=== PATIENT | male | born 2000 | race Caucasian/White ===

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

== ENCOUNTER 2021-07-03 10:28 | Emergency (ER) | payer MEDICAID ==
[~2021-07-03] VITALS: Ht 213.3 cm; Wt 145.1 kg
[~2021-07-03 10:28] MED LIST changes: +DICYCLOMINE HCL10 MG PO
[2021-07-03] MEDS ORDERED: SEPTDS PO (14:02)
[2021-07-03] MEDS ORDERED: NAPROXEN250 MG PO (14:02)
[2021-07-03] MEDS ORDERED: TYLENOL325 M1 PO (14:02)
== END 2021-07-03 14:27 | disposition home or self-care (01) ==
LOC: ED 10:28
DX: L05.01 Pilonidal cyst with abscess (principal)

== ENCOUNTER 2021-07-06 16:07 | Emergency (ER) | payer MEDICAID ==
[~2021-07-06 16:07] MED LIST changes: +NAPROXEN250 MG PO; +SEPTDS PO; +TYLENOL325 M1 PO
== END 2021-07-06 22:05 | disposition left against medical advice (07) ==
LOC: ED 16:07
DX: L02.91 Cutaneous abscess, unspecified (principal); Z53.21 Procedure and treatment not carried out due to patient leaving prior to being seen by health care provider

== ENCOUNTER 2022-06-19 14:44 | Emergency (ER) | payer MEDICAID ==
[~2022-06-19] VITALS: Wt 140.6 kg
[2022-06-19] MEDS ORDERED: SEPTDS PO (15:30)
[2022-06-19] MEDS ORDERED: IBUPROFEN600 MG PO (15:30)
== END 2022-06-19 15:38 | disposition home or self-care (01) ==
LOC: ED 14:44
DX: L02.214 Cutaneous abscess of groin (principal); Z91.030 Bee allergy status

== ENCOUNTER 2023-06-21 07:30 | Emergency (ER) | payer SELFPAY ==
[~2023-06-21] VITALS: Wt 145.1 kg
[~2023-06-21 07:30] MED LIST changes: +IBUPROFEN600 MG PO
[2023-06-21] MEDS ORDERED: PREDNISONE50 MG PO (08:16)
[2023-06-21] MEDS ORDERED: PROVENTIL HFA6.7 GM INH (08:16)
[2023-06-21] MEDS ORDERED: ZITHROMAX250 MG PO (08:16)
== END 2023-06-21 08:21 | disposition home or self-care (01) ==
LOC: ED 07:30
DX: J06.9 Acute upper respiratory infection, unspecified (principal); Z91.030 Bee allergy status; Z98.890 Other specified postprocedural states